=== PATIENT | male | born 1990 | race Hispanic/Latino ===

== ENCOUNTER 2017-03-15 11:37 | Outpatient (CLI) | payer OTHER ==
--- NOTE | 2017-03-15 12:46 | RAD ---
RIGHT RIB SERIES: History: Sharp chest pain after leaning over a few days ago. FINDINGS: Multiple views of the right ribs shows no evidence of displaced right rib fracture. No underlying ple ural thickening or pneumothorax are seen. No expansile rib lesions are present. IMPRESSION: No evidence of right rib fracture. POS: [facility]
== END 2017-03-15 11:38 | disposition home or self-care (01) ==
LOC: SCSRAD 11:37
PROVIDERS: ATTEND Family Medicine
DX: R07.89 Other chest pain (principal)